=== PATIENT | female | born 1965 | race Asian ===

== ENCOUNTER → 2019-06-27 | Outpatient (CLI) | payer OTHER ==
--- NOTE | 2019-06-27 12:08 | RADIOLOGY REPORT (SQ) ---
EXAM DESCRIPTION: U/S THYROID/SFT TISS HD NECK COMPLETED DATE/TIME: 06/27/2019 10:09 am REASON FOR STUDY: R22.1 LOCALIZED SWELLING, MASS AND LUMP, NECK R22.1 LOCALIZED SWELLING, MASS AND LUMP, NECK COMPARISON: None. TECHNIQUE: Dynamic and static grayscale and color Doppler images of the area of palpable abnormality on the right-side of the neck were obtained LIMITATIONS: None. FINDINGS: At the site of the palpable abnormality there is a hypoechoic 1.4 x 1.4 x 1.6 cm solid nod ule with internal color Doppler flow. The nodule is located superior to the right lobe of the thyroi d gland, has lobular margins, and internal echogenic foci. IMPRESSION: Solid 1.4 x 1.4 x 1.6 cm hypoechoic nodule located superior to the right lobe of the thy roid gland. COMMENT: Consider ultrasound-guided FNA/biopsy of the nodule. TECHNICAL DOCUMENTATION: JOB ID: [id number] [employer]- All Rights Reserved Reading location - IP/workstation name: [email or web address]
== END ==
LOC: RAD 09:45
PROVIDERS: ATTEND Family Medicine
DX: R22.1 Localized swelling, mass and lump, neck (principal)
CPT/HCPCS: 76536

== ENCOUNTER → 2019-07-07 | Outpatient (CLI) | payer OTHER ==
[2019-07-07 17:36] LABS: FREE T3 3.21 pg/mL (2.77-5.27); FREE T4 (FREE THYROXINE) 0.98 ng/dL (0.78-2.19)
[2019-07-07 17:49] LABS: THYROID STIMULATING HORMONE 3.62 uIU/mL (0.47-4.68)
== END ==
LOC: OD 16:12
PROVIDERS: ATTEND Surgery
DX: E05.90 Thyrotoxicosis, unspecified without thyrotoxic crisis or storm (principal)
CPT/HCPCS: 36415; 84439; 84443; 84481